=== PATIENT | female | born 1980 | race Caucasian/White ===

== ENCOUNTER 2021-03-27 19:38 | Emergency (ER) | payer MEDICARE, SELFPAY ==
[2021-03-27 19:46] VITALS: BP 106/76; PULSE 79; RESP 17; TEMP 37; O2SAT 94; BMI 21.4
--- NOTE | 2021-03-27 20:21 | ED_ITS ---
HPI - General Adult General: Chief complaint: Fever Stated complaint: fever, congestion Time Seen by Provider: 03/27/21 20:16 History of Present Illness: HPI narrative: Patient complains about sinus pressure and tenderness the last 3 or 4 days. Denies allergies. Said she had a fever earlier today. MD complaint: Sinus problems Onset (ago): day(s) Location: face Radiation: non-radiation Severity scale (1-10): 3 Quality: aching Associated symptoms: Reports fevers/chills; Deny chest pain, dyspnea, headache(s), nausea, rash or vomiting Treatments prior to arrival: none Review of Systems Const: Denies: fever(s), chills or body aches Eyes: Denies: change in vision or blurry vision ENMT: Reports: nasal congestion and sinus pain; Denies: throat pain Card: Denies: chest pain or dyspnea on exertion Resp: Denies: dyspnea, productive cough or non-productive cough GI: Denies: abdominal pain, nausea or vomiting Musc: Denies: extremity pain Skin/Breast: Denies: rash Neuro: Denies: headache(s) Psych: Denies: anxiety or depression [place]/Lymph: Denies: easy bruising [facility] ED Female Reproductive History: Date of last menstrual period: 02/24/21 Physical Exam Const: COMMON NORMALS: no acute distress, average body habitus and patient oriented x3 HENMT: COMMON NORMALS: normocephalic HEAD & SCALP: normal to inspection and normocephalic FACE & SINUS: sinus tenderness frontal and maxillary Eye: COMMON NORMALS: conjunctivae normal GENERAL EYE: appearance normal, both eyes and all related structures CONJUNCTIVA: Yes conjunctivae normal Neck/C-Spine: COMMON NORMALS: no JVD Chest: COMMONS NORMALS: normal inspection of the chest Resp: COMMON NORMALS: normal respiratory effort and clear to auscultation bilaterally AUSCULTATION: clear to auscultation bilaterally Cardio: COMMON NORMALS: no JVD, regular rate and regular rhythm RATE: regular rate RHYTHM: regular rhythm GI: COMMON NORMALS: Normal to inspection, nondistended, normoactive bowel sounds present Extremity: COMMON NORMALS: normal to inspection and full ROM Neuro: COMMON NORMALS: patient oriented x3 Course Vital Signs: Vital signs: Vital Signs Temperature 98.6 F 03/27/21 19:46 Pulse Rate 79 03/27/21 19:46 Respiratory Rate 17 03/27/21 19:46 Blood Pressure 106/76 03/27/21 19:46 Pulse Oximetry 94 03/27/21 19:46 Discharge Plan Discharge Patient Disposition: Home Clinical Impression: Acute infection of sinus Qualifiers: Sinusitis location: maxillary Recurrence: non-recurrent Qualified Code(s): J01.00 - Acute maxillary sinusitis, unspecified Condition: Stable Prescriptions: New Bactrim DS 800-160 mg tablet 1 tab PO BID 10 Days Qty: 20 RF: 0 Discharge Orders: Discharge ED (Routine); Ordered 03/27/21 Ordered By: Dong Redding Referrals: Silvana Light MD [Primary Care Provider] - Discharge Diet: Usual diet Discharge Activity: Resume usual activity Patient Instructions: Sinusitis (ED) Activity Restrictions/Additional Instructions: Follow-up with medical provider as directed. Take medications as prescribed. Return to the ER or your medical provider if condition worsens. Please read and understand discharge instructions. If any questions ask please. Coding Level of Care Code ED Book Publisher for Ashlee Vera
[2021-03-27 20:24] VITALS: BP 122/69; PULSE 75; RESP 17; O2SAT 95
[2021-03-27] MEDS: sulfamethoxazole-trimeth DS 160-800 mg Tablet 1 TAB PO (20:24)
[2021-03-27 20:31] VITALS: BP 122/69; PULSE 70; RESP 17; O2SAT 95
== END 2021-03-27 20:33 | disposition home or self-care (01) ==
PROVIDERS: Emergency Provider Nurse Practitioner Family; PCP Family Medicine
DX: J01.00 Acute maxillary sinusitis, unspecified (principal)
CPT/HCPCS: 99282

== ENCOUNTER 2022-10-29 07:49 | Emergency (ER) | payer MEDICARE, SELFPAY ==
[2022-10-29 08:15] VITALS: BP 115/76; PULSE 77; RESP 16; TEMP 37.1; O2SAT 97; BMI 25.0
--- NOTE | 2022-10-29 08:34 | W.ED.COVID ---
HPI - COVID General: Chief Complaint: COVID symptoms Stated Complaint: coughing and fever Time Seen by Provider: 10/29/22 08:29 History of Present Illness: sob and cough, body aches x 3 days COVID 19 common symptoms: positive non-productive cough and dyspnea COVID Results: SARS-CoV-2 Antigen (Rapid) Negative (Negative) 10/29/22 08:42 Review of Systems General: Reports: 10 or more systems reviewed and unremarkable except in HPI and below Resp: Reports: dyspnea, non-productive cough and chest congestion; Denies: wheezing or stridor [facility] ED Female Reproductive History: Date of last menstrual period: 02/24/21 Physical Exam Const: COMMON NORMALS: no acute distress, patient oriented x3, no limitations and alert GENERAL APPEARANCE: cooperative and comfortable ORIENTATION/CONSCIOUSNESS: Yes awake, Yes oriented to person, Yes oriented to place and Yes oriented to time HENMT: COMMON NORMALS: normocephalic, atraumatic, external ears normal, EAC's normal, TM's normal bilaterally and Normal external nose present HEAD & SCALP: normal to inspection, normocephalic and atraumatic FACE & SINUS: normal facial exam, sinuses nontender and face symmetric NOSE: Normal external nose present, Normal nares present and No nasal discharge present EXTERNAL EAR: Yes external ears normal EXTERNAL AUDITORY CANAL: EAC's normal TYMPANIC MEMBRANE: TM's normal bilaterally MOUTH: Normal oral and palatal mucosa present, lip normal and tongue normal THROAT: posterior oropharynx normal, tonsils normal and uvula midline Eye: COMMON NORMALS: Equal, round and reactive pupils present, EOMs intact bilaterally and conjunctivae normal GENERAL EYE: appearance normal, both eyes and all related structures and normal light reflex EYELID: eyelids normal CONJUNCTIVA: Yes conjunctivae normal PUPIL: Yes Equal, round and reactive pupils present EOM: Yes EOM abnormal DIRECT OPHTHALMOSCOPY: Yes normal light reflex Neck/C-Spine: COMMON NORMALS: full ROM, no lymphadenopathy, supple, no meningeal signs, no JVD and Thyroid normal GENERAL: Yes normal visual inspection THYROID: Thyroid normal CERVICAL SPINE: Yes cervical ROM normal and Yes normal cervical lordosis Lymph: LYMPHATIC: no lymphadenopathy noted Chest: COMMONS NORMALS: normal inspection of the chest and normal palpation of entire chest wall Resp: COMMON NORMALS: normal respiratory effort and No retractions AUSCULTATION: diminished lung sounds Cardio: COMMON NORMALS: no JVD, regular rate, regular rhythm, S1 normal heart sound present, S2 normal heart sound present, No gallops present (Cardio), No clicks present (Cardio), No murmurs present (Cardio), No rub (Cardio) and Peripheral pulses 2+ throughout RATE: regular rate RHYTHM: regular rhythm HEART SOUNDS: S1 normal heart sound present and S2 normal heart sound present PERIPHERAL PULSES: Peripheral pulses 2+ throughout GI: COMMON NORMALS: Normal to inspection, nondistended, normoactive bowel sounds present, Soft to palpation, non-tender and no masses PALPATION: Yes Soft to palpation : COMMON NORMALS: Yes no CVA tenderness and Yes normal external appearance BLADDER/KIDNEY EXAM: Yes no CVA tenderness Back/Pelvis: COMMON NORMALS: no CVA tenderness, thoracic and lumbar spine normal to inspection, no thoracic nor lumbar tenderness and thoraco-lumbar ROM normal Extremity: COMMON NORMALS: normal to inspection, full ROM, capillary refill normal, no joint enlargement, no clubbing, cyanosis or edema, no calf tenderness and no pedal edema GENERAL: Yes normal exam except as noted Neuro: COMMON NORMALS: patient oriented x3, moves all extremities, no focal motor deficits, no sensory deficits noted and gait normal SENSORIUM/ORIENTATION: Yes alert, Yes oriented to person, Yes oriented to place and Yes oriented to time MENINGEAL SIGNS: Yes no meningeal signs Psych: COMMON NORMALS: mental status grossly normal, Normal thought process present, cooperative, normal affect, speech normal and activity/motor behavior normal SPEECH: Yes normal speech THOUGHT PROCESS: Normal thought process present Skin: COMMON NORMALS: no rashes or lesions noted, no wounds and turgor normal GENERAL SKIN EXAM: no rashes or lesions noted and turgor normal Course ED course: Pt presents to ER with complaints of flu like symptoms for several days. Upon presentation she is lethargic and her oxygen sats while resting drop into the low 90s but when she is talking she maintains 96% or better on RA. Her vitals are stable and she is afebrile. Denies nausea and vomiting at this time. Reevaluation(s): Reevaluation #1: Covid swab is negative; flu swab ordered. CXR shows no acute infiltates but will await radiology to review. Vital Signs: Vital signs: Vital Signs Temperature 98.8 F 10/29/22 08:15 Pulse Rate 65 12/11/22 08:40 Respiratory Rate 16 10/29/22 08:15 Blood Pressure 115/76 10/29/22 08:15 Pulse Oximetry 92 10/29/22 08:40 Oxygen Delivery Me thod 10/29/22 09:05 MDM - COVID Medical Decision Making Flu A positive. Will DC with supportive therapies. Lab Data Radiology Impressions Chest X-Ray 10/29/22 09:22 IMPRESSION: No chest radiographic evidence of acute cardiopulmonary disease. Laboratory Results Influenza Type A Ag positive (Negative) H 10/29/22 10:00 Influenza Type B Ag negative (Negative) 10/29/22 10:00 SARS-CoV-2 Ag (Rapid) Negative (Negative) 10/29/22 08:42 SARS-CoV-2 Antigen (Rapid) Negative (Negative) 10/29/22 08:42 Discharge Plan Discharge Patient Disposition: Home Clinical Impression: Influenza Condition: Stable Prescriptions: New Mucinex Fast-Max Chest-Congest 100 mg/5 mL liquid 200 mg PO Q6H PRN (Reason: cough) Qty: 473 0RF zinc acetate 50 mg (zinc) capsule 50 mg PO DAILY Qty: 30 0RF Quercetin Complex 500-250-33 mg capsule 1 cap PO DAILY Qty: 30 0RF vitamin D3-vitamin K2 1,250-200 mcg capsule 1 cap PO DAILY Qty: 30 0RF NAC 600 mg capsule 600 mg PO DAILY Qty: 30 0RF Discharge Orders: Discharge ED (Routine); Ordered 10/29/22 Ordered By: Nenita Lovell Referrals: Silvana Light MD [Primary Care Provider] - Discharge Diet: Advance as tolerated Discharge Activity: Increase activity as tolerated Patient Instructions: Opioid Safety, Pain Management Activity Restrictions/Additional Instructions: Please ensure adequate fluid intake and deep breathing exercises every few hours. Green tea is high in antioxidants that will help the body to improve it's immune function. Limit sugars and processed foods or dairy as they are inflammatory and thicken secretions. Broths and focusing on staying hydrated. 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
[2022-10-29 08:40] VITALS: PULSE 65; O2SAT 92
[2022-10-29 09:06] LABS: SARS Covid-2 Antigen Negative (Negative)
--- NOTE | 2022-10-29 09:22 | XRR_ITS ---
PROCEDURE INFORMATION: Exam: XR Chest Exam date and time: 10/29/2022 9:58 AM Age: 42 years old Clinical indication: Shortness of breath; Prior surgery; Additional info: SOB TECHNIQUE: Imaging protocol: Radiologic exam of the chest. Views: 1 view. COMPARISON: CR XR chest 1V [id number] 06/19/2017 3:01 PM FINDINGS: Lungs: Normal lung volumes. No interstitial or airspace opacities. Pleural spaces: No pleural effusion. No pneumothorax. Heart/Mediastinum: Normal heart size. Normal mediastinal contour. Midline trachea. Bones/joints: No acute abnormalities. Status post prior median sternotomy with sternal wires. XR/XR chest 1V portable [id number] IMPRESSION: No chest radiographic evidence of acute cardiopulmonary disease.
[2022-10-29 10:30] LABS: Influenza A by IFA positive (Negative); Influenza B by IFA negative (Negative)
[2022-10-29 11:23] VITALS: PULSE 105; O2SAT 92
== END 2022-10-29 11:50 | disposition home or self-care (01) ==
PROVIDERS: Emergency Provider Nurse Practitioner Family; PCP Family Medicine
DX: J11.1 Influenza due to unidentified influenza virus with other respiratory manifestations (principal); Z20.822 Contact with and (suspected) exposure to COVID-19
CPT/HCPCS: 71045; 87426; 87804; 99283